=== PATIENT | female | born 1960 | race Caucasian/White ===

== ENCOUNTER → 2017-09-19 | Outpatient (CLI) | payer OTHER ==
[2017-09-21 15:11] LABS: HPV Genotype 16 Not Detected (NOTDET); HPV Genotype 18 Not Detected (NOTDET)
[2017-10-07 09:40] LABS: HPV High Risk Other Not Detected (NOTDET)
== END | disposition home or self-care (01) ==
LOC: LAB 15:08
PROVIDERS: Obstetrics & Gynecology
DX: Z01.419 Encounter for gynecological examination (general) (routine) without abnormal findings (principal)
CPT/HCPCS: 87624; G0123

== ENCOUNTER 2021-11-28 10:32 | Day surgery (SDC) | payer OTHER ==
[~2021-11-28] VITALS: Ht 157.5 cm; Wt 68.5 kg
[2021-11-28] MEDS ORDERED: CENTRUM SILVER1 EAC2 PO (11:24)
[2021-11-28] MEDS ORDERED: DULO30 PO (11:24)
[2021-11-28] MEDS ORDERED: CALCIUM CIT 311 EAC7 PO (11:24)
[2021-11-28] MEDS ORDERED: TRAZ100 PO (11:25)
[2021-11-28] MEDS ORDERED: Buspirone HCl15 MG PO (11:25)
[2021-11-28] MEDS ORDERED: ATOR20 (11:25)
== END 2021-11-28 13:16 | disposition home or self-care (01) ==
LOC: ORSCSDS 10:32
PROVIDERS: Internal Medicine Gastroenterology
PROC: 0DBM8ZX Excision of Descending Colon, Via Natural or Artificial Opening Endoscopic, Diagnostic (ICD-10-PCS; principal; 2021-11-28 11:45)
PROC: 0DBN8ZX Excision of Sigmoid Colon, Via Natural or Artificial Opening Endoscopic, Diagnostic (ICD-10-PCS; principal; 2021-11-28 11:45)
PROC: 0DBL8ZX Excision of Transverse Colon, Via Natural or Artificial Opening Endoscopic, Diagnostic (ICD-10-PCS; principal; 2021-11-28 11:45)
DX: Z12.11 Encounter for screening for malignant neoplasm of colon (principal); Z86.010 Personal history of colon polyps; Z83.71 Family history of colonic polyps; K63.5 Polyp of colon; K64.4 Residual hemorrhoidal skin tags; Z79.891 Long term (current) use of opiate analgesic; Z79.899 Other long term (current) drug therapy
CPT/HCPCS: 88305; J2704; J7120

== ENCOUNTER 2022-06-17 10:56 | Emergency (ER) | payer OTHER ==
[~2022-06-17 10:56] MED LIST: ATOR20; Buspirone HCl15 MG PO; CALCIUM CIT 311 EAC7 PO; CENTRUM SILVER1 EAC2 PO; DULO30 PO; TRAZ100 PO
[2022-06-17] MEDS ORDERED: Norco 5-325 Ta1 EACH PO (12:06)
[2022-06-17] MEDS ORDERED: HYDR1TAB94 PO (13:24)
== END 2022-06-17 12:35 | disposition home or self-care (01) ==
DX: M25.512 Pain in left shoulder (principal); W19.XXXA Unspecified fall, initial encounter; Z79.899 Other long term (current) drug therapy

== ENCOUNTER 2022-10-05 11:51 | Inpatient (IN) | payer OTHER ==
[~2022-10-05] VITALS: Ht 157.5 cm; Wt 61.6 kg
[~2022-10-05 11:51] MED LIST changes: -ATOR20; +ATOR20 PO; +HYDR1TAB94 PO; +Norco 5-325 Ta1 EACH PO
[2022-10-05 12:15] LABS: BASOPHILS ABSOLUTE AUTO 0.02 K/mm3 (0.00-0.23); BASOPHILS PERCENT AUTO 0 % (0-2); EOSINOPHILS PERCENT AUTO 0 % (0-6); Hematocrit 42.3 % (33.0-51.0); Hemoglobin 14.4 g/dL (11.5-16.0); IMMATURE GRAN ABSOLUTE AUTO 0.06 K/mm3 (0.00-0.10); IMMATURE GRAN PERCENT AUTO 0 % (0-1); LYMPHOCYTES ABSOLUTE AUTO 1.75 K/mm3 (0.84-5.20); LYMPHOCYTES PERCENT AUTO 12 % (21-46); MONOCYTES ABSOLUTE AUTO 1.24 K/mm3 (0.16-1.47); MONOCYTES PERCENT AUTO 9 % (4-13); Mean Corpuscular HGB 30.6 pg (26.0-34.0); Mean Corpuscular Volume 90 fL (80-100); NEUTROPHILS ABSOLUTE AUTO 11.39 K/mm3 (1.96-9.15); NEUTROPHILS PERCENT AUTO 79 % (41-73); Platelet Count 212 K/mm3 (150-400); RDW Coefficient Variation 13.3 % (11.7-14.2); RDW Standard Deviation 44.1 fL (35.1-46.3); White Blood Cell Count 14.46 K/mm3 (4.00-11.30)
[2022-10-05 12:33] LABS: Albumin, Blood 3.5 g/dL (3.4-5.0); Albumin/Globulin Ratio 0.9 (0.8-1.8); Bilirubin, Total 1.3 mg/dL (0.1-1.0); Bun/Creatinine Ratio 28.8 (12.0-20.0); Calcium, Blood 8.9 mg/dL (8.5-10.1); Creatinine, Blood 0.9 mg/dL (0.40-1.00); Globulin, Blood 3.9 g/dL (2.2-4.0); Potassium, Blood 2.8 mmol/L (3.5-5.5); Total Protein, Blood 7.4 g/dL (6.4-8.2)
[2022-10-05 17:24] LABS: Anti-Xa UFH, PHA Monitoring <0.10 IU/mL; International Normalized Ratio 1.55; Prothrombin Time Results 15.8 Sec (9.7-11.5)
[2022-10-06 03:09] LABS: BASOPHILS ABSOLUTE AUTO 0.03 K/mm3 (0.00-0.23); BASOPHILS PERCENT AUTO 0 % (0-2); EOSINOPHILS ABSOLUTE AUTO 0.06 K/mm3 (0.00-0.68); EOSINOPHILS PERCENT AUTO 1 % (0-6); Hemoglobin 12.8 g/dL (11.5-16.0); IMMATURE GRAN ABSOLUTE AUTO 0.02 K/mm3 (0.00-0.10); IMMATURE GRAN PERCENT AUTO 0 % (0-1); LYMPHOCYTES ABSOLUTE AUTO 3.42 K/mm3 (0.84-5.20); LYMPHOCYTES PERCENT AUTO 34 % (21-46); MONOCYTES PERCENT AUTO 10 % (4-13); Mean Corpuscular HGB 30.9 pg (26.0-34.0); Mean Corpuscular HGB Conc 33.7 g/dL (31.5-36.5); Mean Corpuscular Volume 92 fL (80-100); Mean Platelet Volume 10.3 fL (9.1-12.4); NEUTROPHILS ABSOLUTE AUTO 5.51 K/mm3 (1.96-9.15); NEUTROPHILS PERCENT AUTO 55 % (41-73); Platelet Count 192 K/mm3 (150-400); RDW Coefficient Variation 13.6 % (11.7-14.2); RDW Standard Deviation 46.1 fL (35.1-46.3); Red Blood Cell Count 4.14 M/mm3 (3.80-5.20); White Blood Cell Count 10.04 K/mm3 (4.00-11.30)
[2022-10-06 03:26] LABS: Anion Gap 4 mmol/L (6-16); Blood Urea Nitrogen 19 mg/dL (8-24); Bun/Creatinine Ratio 22.4 (12.0-20.0); CHOL/HDL RATIO 2.2; CO2, Blood 31 mmol/L (21-32); Calcium, Blood 7.6 mg/dL (8.5-10.1); Chloride, Blood 106 mmol/L (98-108); Cholesterol 113 mg/dL (50-200); Creatinine, Blood 0.85 mg/dL (0.40-1.00); Glomerular Filtration Rate 77 (60-); Glucose, Blood 103 mg/dL (70-99); HDL Cholesterol 51 mg/dL (>39); LDL/HDL RATIO 0.9; Low Density Lipoprotein Chol 47 mg/dL (0-110); Sodium, Blood 141 mmol/L (136-145); Triglycerides 75 mg/dL (30-160); Very Low Density Lipoprot Chol 15 mg/dL (6-32)
--- NOTE | 2022-10-06 05:17 | NUR ---
SHIFT SUMMARY PATIENT ARRIVED VIA STRETCHER TO PCU 01 AT 2000. SHE IS ALERT AND ORIENTED X4, APPROPRIATE WITH CALL LIGHT, AND STEADY ON HER FEET. VITAL SIGNS STABLE. PATIENT DENIES CHEST PAIN/PRESSURE, HEART SINUS RHYTHM ON TELE. LUNG SOUNDS CLEAR IN ALL SCHROEDER, NO COMPLAINTS OF SHORTNESS OF BREATH. HEPARIN DRIP CURRENTLY INFUSING AT 19.2 ML/HR OR 15 U/KG/HR. NO ACUTE ISSUES NOTED OVERNIGHT. WILL CONTINUE TO MONITOR. CALL LIGHT WITHIN REACH.
[2022-10-06 13:59] LABS: Bilirubin, Direct 0.3 mg/dL (0.0-0.3); Bilirubin, Indirect 0.5 mg/dL (0.1-0.7); Bilirubin, Total 0.8 mg/dL (0.1-1.0)
--- NOTE | 2022-10-06 17:56 | NUR ---
SHIFT SUMMARY; ASSUMED CARE AT 0700. A/A/OX4 DURING SHIFT. AMBULATES TO RESTROOM WITH SBA. REPOSITIONS SELF IN BED NEEDED. ECHO COMPLETE TODAY, EVALUATED BY CARDIOLOGY, POSSIBLE STRESS TEST SATURDAY. HEPARIN DC'D BY CARDIOLOGY. DENIES CP OR SOB, VSS, WILL CONTINUE TO MONITOR AND TREAT UNTIL CHANGE OF SHIFT.
[2022-10-07 05:03] LABS: BASOPHILS ABSOLUTE AUTO 0.03 K/mm3 (0.00-0.23); BASOPHILS PERCENT AUTO 0 % (0-2); EOSINOPHILS ABSOLUTE AUTO 0.14 K/mm3 (0.00-0.68); EOSINOPHILS PERCENT AUTO 2 % (0-6); Hemoglobin 12.3 g/dL (11.5-16.0); IMMATURE GRAN ABSOLUTE AUTO 0.02 K/mm3 (0.00-0.10); IMMATURE GRAN PERCENT AUTO 0 % (0-1); LYMPHOCYTES ABSOLUTE AUTO 2.31 K/mm3 (0.84-5.20); LYMPHOCYTES PERCENT AUTO 28 % (21-46); MONOCYTES ABSOLUTE AUTO 0.97 K/mm3 (0.16-1.47); MONOCYTES PERCENT AUTO 12 % (4-13); Mean Corpuscular HGB 30.6 pg (26.0-34.0); Mean Corpuscular HGB Conc 33.2 g/dL (31.5-36.5); Mean Corpuscular Volume 92 fL (80-100); Mean Platelet Volume 11.1 fL (9.1-12.4); NEUTROPHILS PERCENT AUTO 59 % (41-73); Platelet Count 206 K/mm3 (150-400); RDW Coefficient Variation 13.2 % (11.7-14.2); RDW Standard Deviation 44.9 fL (35.1-46.3); Red Blood Cell Count 4.02 M/mm3 (3.80-5.20); White Blood Cell Count 8.37 K/mm3 (4.00-11.30)
[2022-10-07 05:22] LABS: Bun/Creatinine Ratio 17.3 (12.0-20.0); Calcium, Blood 7.9 mg/dL (8.5-10.1); Creatinine, Blood 0.75 mg/dL (0.40-1.00); Potassium, Blood 2.9 mmol/L (3.5-5.5)
--- NOTE | 2022-10-07 07:12 | NUR ---
SHIFT SUMMARY PATIENT ALERT AND ORIENTED X4. MEDICATED PER EMAR FOR BACK PAIN AND GIVEN A HEATING PAD. VITAL SIGNS STABLE. LUNG SOUNDS CLEAR, NO COMPLAINTS OF SHORTNESS OF BREATH. PATIENT TOOK A WALK AROUND THE UNIT AND HAD NO COMPLAINTS OF CHEST PAIN, HEART RATE IN 120'S WHILE UP BUT CAME BACK DOWN TO THE 90'S WHEN PATIENT RECOVERED. NO ACUTE ISSUES NOTED OVERNIGHT. CALL LIGHT WITHIN REACH.
--- NOTE | 2022-10-07 07:30 | NUR ---
ASSUMED CARE: PT RESTING QUIETLY IN BED AT THIS TIME. NSR ON TELE. NO ACUTE NEEDS OR CONCERNS AT THIS TIME.
--- NOTE | 2022-10-07 08:11 | NUR ---
PT EXPRESSING CONCERN ABOUT NOT HAVING CYMBALTA IN A WEEK BECAUSE SHE WAS NAUSEATED AND VOMITING AT HOME. CALL TO DR KNAPP WHO STATED HE WILL COME TALK TO HER ABOUT IT.
--- NOTE | 2022-10-07 18:05 | NUR ---
SHIFT SUMMARY: PT WAS SEEN BY SALES AGENT [employer] TODAY WITH PLAN FOR CARDIAC CATH TOMORROW. DR FEELS PT LIKELY PASSED GALL STONE, LEADING TO BROKEN HEART SYNDROME. PT STILL STATES UNABLE TO TOLERATE LARGE AMOUNTS OF FOOD WITHOUT NAUSEA. MEDICATED X1 FOR NAUSEA. INDEPENDENT IN ROOM AND AMBULATORY. DENIES CHEST PAIN ALL SHIFT. NO ACUTE NEEDS OR CONCERNS AT THIS TIME.
[2022-10-08 03:51] LABS: Bun/Creatinine Ratio 9.6 (12.0-20.0); Calcium, Blood 7.9 mg/dL (8.5-10.1); Creatinine, Blood 0.83 mg/dL (0.40-1.00); Potassium, Blood 3.6 mmol/L (3.5-5.5)
[2022-10-08 04:54] LABS: BASOPHILS ABSOLUTE AUTO 0.02 K/mm3 (0.00-0.23); BASOPHILS PERCENT AUTO 0 % (0-2); EOSINOPHILS ABSOLUTE AUTO 0.17 K/mm3 (0.00-0.68); EOSINOPHILS PERCENT AUTO 2 % (0-6); Hematocrit 39.2 % (33.0-51.0); Hemoglobin 12.8 g/dL (11.5-16.0); IMMATURE GRAN ABSOLUTE AUTO 0.01 K/mm3 (0.00-0.10); IMMATURE GRAN PERCENT AUTO 0 % (0-1); LYMPHOCYTES ABSOLUTE AUTO 2.05 K/mm3 (0.84-5.20); LYMPHOCYTES PERCENT AUTO 25 % (21-46); MONOCYTES ABSOLUTE AUTO 0.86 K/mm3 (0.16-1.47); MONOCYTES PERCENT AUTO 11 % (4-13); Mean Corpuscular HGB 30.6 pg (26.0-34.0); Mean Corpuscular HGB Conc 32.7 g/dL (31.5-36.5); Mean Corpuscular Volume 94 fL (80-100); Mean Platelet Volume 11.4 fL (9.1-12.4); NEUTROPHILS ABSOLUTE AUTO 4.95 K/mm3 (1.96-9.15); NEUTROPHILS PERCENT AUTO 62 % (41-73); Platelet Count 201 K/mm3 (150-400); RDW Coefficient Variation 13.5 % (11.7-14.2); RDW Standard Deviation 46.5 fL (35.1-46.3); Red Blood Cell Count 4.18 M/mm3 (3.80-5.20); White Blood Cell Count 8.06 K/mm3 (4.00-11.30)
--- NOTE | 2022-10-08 06:07 | NUR ---
SHIFT SUMMARY PATIENT ALERT AND ORIENTED X4. SHE HAD NO COMPLAINTS OF PAIN OR SHORTNESS OF BREATH. VITAL SIGNS STABLE. HEART SINUS RHYTHM IN THE 90'S PER TELE. DENIES CHEST PAIN. PATIENT IS CURRENTLY NPO PENDING PROCEDURE. NO ACUTE ISSUES NOTED OVERNIGHT. WILL CONTINUE TO MONITOR. CALL LIGHT WITHIN REACH.
[2022-10-08] MEDS ORDERED: ASPI81CH PO (15:27)
[2022-10-08] MEDS ORDERED: Prinivil10 MG PO (15:35)
[2022-10-08] MEDS ORDERED: METO25ER PO (15:37)
--- NOTE | 2022-10-08 18:04 | NUR ---
DISCHARGE: PT TO/FROM RADIOPHONE OPERATOR THIS AM W/NO INTERVENTION. R RADIAL SITE RECOVERED WNL. VSS. PT DENIES CP, SOB, N/V. PT CLEARED FOR DISCHARGE. IV ACCESS DC'd. PT DRESSES SELF. PT AND FAMILY PROVIDED WITH DC PAPERWORK AND INSTRUCTIONS, ALL QUESTIONS HAVE BEEN ANSWERED. PT ESCORTED FROM UNIT VIA W/C W/OUT INCIDENT.
== END 2022-10-08 17:53 | disposition home or self-care (01) | DRG 281 ==
LOC: ER 11:51 → PCU 11:52
PROVIDERS: Family Medicine; Internal Medicine Interventional Cardiology; Student in an Organized Health Care Education/Training Program; ADMIT Internal Medicine
PROC: 4A023N7 Measurement of Cardiac Sampling and Pressure, Left Heart, Percutaneous Approach (ICD-10-PCS; principal; 2022-10-08)
PROC: B211YZZ Fluoroscopy of Multiple Coronary Arteries using Other Contrast (ICD-10-PCS; 2022-10-08)
DX: I21.4 Non-ST elevation (NSTEMI) myocardial infarction (principal); I50.22 Chronic systolic (congestive) heart failure; I51.81 Takotsubo syndrome; F41.8 Other specified anxiety disorders; F17.210 Nicotine dependence, cigarettes, uncomplicated; E87.6 Hypokalemia; R11.2 Nausea with vomiting, unspecified; D72.828 Other elevated white blood cell count; R10.13 Epigastric pain; I11.0 Hypertensive heart disease with heart failure; E78.5 Hyperlipidemia, unspecified; Z71.6 Tobacco abuse counseling; Z90.49 Acquired absence of other specified parts of digestive tract; Z92.3 Personal history of irradiation; Z98.51 Tubal ligation status; Z88.8 Allergy status to other drugs, medicaments and biological substances; Z79.899 Other long term (current) drug therapy
CPT/HCPCS: 36415; 74177; 76705; 76937; 80048; 80053; 80061; 82247; 82248; 83036; 83690; 83735; 84132; 84450; 84484; 85025; 85520; 85610; 85730; 93005; 93010; 93306; 93458; 96361; 96365-59; 96375; 99152; 99153; 99285-25; A9270; C1769; C1887; C1894; G0378; J1170; J1644; J2250; J2405; J3010; J3480; J7030; J7040; J7050; J7120; Q9967

== ENCOUNTER 2023-08-18 05:17 | Inpatient (IN) | payer OTHER ==
[~2023-08-18] VITALS: Ht 160 cm; Wt 56.5 kg
[~2023-08-18 05:17] MED LIST changes: +ASPI81CH PO; +METO25ER PO; +Prinivil10 MG PO
[2023-08-18 05:42] LABS: BASOPHILS ABSOLUTE AUTO 0.03 K/mm3 (0.00-0.23); BASOPHILS PERCENT AUTO 0 % (0-2); EOSINOPHILS PERCENT AUTO 0 % (0-6); Hematocrit 46.8 % (33.0-51.0); Hemoglobin 16.1 g/dL (11.5-16.0); IMMATURE GRAN ABSOLUTE AUTO 0.03 K/mm3 (0.00-0.10); IMMATURE GRAN PERCENT AUTO 0 % (0-1); LYMPHOCYTES ABSOLUTE AUTO 1.17 K/mm3 (0.84-5.20); LYMPHOCYTES PERCENT AUTO 11 % (21-46); MONOCYTES ABSOLUTE AUTO 1.11 K/mm3 (0.16-1.47); MONOCYTES PERCENT AUTO 11 % (4-13); Mean Corpuscular HGB 31.5 pg (26.0-34.0); Mean Corpuscular HGB Conc 34.4 g/dL (31.5-36.5); Mean Corpuscular Volume 92 fL (80-100); Mean Platelet Volume 9.1 fL (9.1-12.4); NEUTROPHILS ABSOLUTE AUTO 7.88 K/mm3 (1.96-9.15); NEUTROPHILS PERCENT AUTO 77 % (41-73); Platelet Count 224 K/mm3 (150-400); RDW Coefficient Variation 12.8 % (11.7-14.2); RDW Standard Deviation 43.3 fL (35.1-46.3); Red Blood Cell Count 5.11 M/mm3 (3.80-5.20); White Blood Cell Count 10.22 K/mm3 (4.00-11.30)
[2023-08-18 06:21] LABS: Albumin, Blood 3.8 g/dL (3.4-5.0); Bilirubin, Direct 0.2 mg/dL (0.0-0.3); Bilirubin, Indirect 0.5 mg/dL (0.1-0.7); Bilirubin, Total 0.7 mg/dL (0.1-1.0); Bun/Creatinine Ratio 22.7 (12.0-20.0); Calcium, Blood 9.6 mg/dL (8.5-10.1); Creatinine, Blood 0.84 mg/dL (0.40-1.00); Globulin, Blood 3.9 g/dL (2.2-4.0); Potassium, Blood 3.2 mmol/L (3.5-5.5); Total Protein, Blood 7.7 g/dL (6.4-8.2)
[2023-08-18 06:40] LABS: Influenza A, PCR NEGATIVE (NEGATIVE); Influenza B, PCR NEGATIVE (NEGATIVE); SARS-Cov-2 (COVID-19) PCR, MMC NEGATIVE (NEGATIVE)
[2023-08-18 07:15] LABS: Resp Syncytial Virus, PCR POSITIVE (NEGATIVE)
[2023-08-18 14:24] VITALS: BP 167/97
--- NOTE | 2023-08-18 15:31 | NUR ---
Received pt from ED at 1330 awake and alert x3. Denies pain. VSS. Resp even nonlabored on 3L NC. Lung sounds diminished. Iso prec for RSV. Oriented to room and call light. Pt independent with ADLs. Will continue to monitor this shift.
[2023-08-18 20:43] VITALS: BP 149/86
[2023-08-19 03:29] VITALS: BP 124/76
--- NOTE | 2023-08-19 05:29 | NUR ---
SHIFT SUMMARY NOC PT A/O X 4. PLEASANT AND COOPERATIVE WITH CARE. PT IN DROPLET ISOLATION FOR RSV. ON 3L/NC SPO2>92%. PT ORIGNALLY CAME INTO ED WITH C/O ABD AND CONTINUES TO HAVE UPSET STOMACH WITH MILD PAIN AND BEING MEDICATED PER EMAR. PT REQUESTED TO TAKE A SHOWER, BUT WHEN SUPPLIES TAKEN TO ROOM PT WAS ASLEEP. POTASSIUM 3.2 UPON ADMIT, REPLACEMENT ADMINISTERED AND AWAITING AM LABS FOR IMPROVEMENT. PT IS RESTING WITH BED IN LOWEST POSITION, AND CALL LIGHT WITHIN REACH.
[2023-08-19 07:37] VITALS: BP 142/86
--- NOTE | 2023-08-19 15:09 | NUR ---
SHIFT SUMMARY PT AWAKE DURING SHIFT REPORT, RESTING QUIETLY IN BED. PT ADMITTED FOR RSV. UP INDEPENDENTLY IN AND TO SHOWER THIS AM. DR CHANEL IN TO SEE PT AFTER BREAKFAST. PT LATER C/O ABD PAIN, JUST BELOW STERNUM. PT MEDICATED PER EMAR. PT REPORTED IT EFFECTIVE, BUT LATER C/O OF PAIN AGAIN. DR CHANEL NOTIFIED; NEW ORDERS PLACED. PT RESTING QUIETLY WATCHING TV. LATER C/O NAUSEA; MEDICATED PER EMAR. PT ON 3L VIA NC; RA AT BASELINE. REQUESTED HUMIDIFIED AIR FOR NASAL DRYNESS; RT ASSISTING. DENIED FURTHER NEEDS AT THIS TIME. CALL LT IN REACH.
[2023-08-19 16:11] VITALS: BP 148/93
[2023-08-19 18:44] VITALS: BP 162/93
[2023-08-20 02:33] VITALS: BP 107/73
[2023-08-20 06:08] LABS: Bun/Creatinine Ratio 18.3 (12.0-20.0); Calcium, Blood 8.9 mg/dL (8.5-10.1); Creatinine, Blood 0.93 mg/dL (0.40-1.00); Potassium, Blood 3.8 mmol/L (3.5-5.5)
--- NOTE | 2023-08-20 06:44 | NUR ---
SUMMARY: PT A/OX4, IS INDEPENDENT IN ROOM AND CALLS APPROPRIATELY TO SPECIFY NEEDS. SHE REMAINS ON 2L HUMIDIFIED O2 VIA NC W/SPO2>92% AND NO S/S RESP DISTRESS OBSERVED. PT HAS KPAD IN PLACE FOR BACK PAIN AND PRN TYLENOL AND ULTRAM WERE RECEIVED FOR RELIEF OF NAGGING ABDO PAIN (UNKNOWN ORIGIN). RHODA RECEIVED THIS AM FOR C/O NAUSEA AND PPI MED WAS COMMENCED. NO ACUTE CHANGES, VSS/AFEBRILE. WCTM AND REPORT TO DAY RN.
[2023-08-20 08:01] VITALS: BP 151/94
[2023-08-20] MEDS ORDERED: ALUM-MAG HYDROX30 M2 PO (11:24)
[2023-08-20] MEDS ORDERED: IPRAT-ALBUT 0.5-3 ML INH (11:25)
[2023-08-20] MEDS ORDERED: Nicoderm Cq1 EAC1 TOP (11:26)
[2023-08-20] MEDS ORDERED: PANT40 PO (11:27)
[2023-08-20] MEDS ORDERED: FLUT1DIS5 INH (11:27)
[2023-08-20] MEDS ORDERED: GUAI600T33 PO (11:28)
--- NOTE | 2023-08-20 15:34 | NUR ---
PT AWAKE DURING SHIFT REPORT. LOOKING AND FEELING BETTER. O2 DECREASED TO RA; PT'S BIOX DECREASED TO 89%-91%. DR CHANEL IN TO SEE PT AND DISCUSS PLAN OF CARE. HOME O2 EVAL DONE PRIOR TO D/C. PT ABLE TO D/C TO ON BASELINE RA. MEDS FAXED TO [facility], PER PT REQUEST. D/C INSTRUCTIONS REVIEWED WITH PT. NOTIFIED OF D/C AND HERE TO TRANSPORTATION MECHANIC PT. ALL BELONGINGS WENT WITH PT.
== END 2023-08-20 14:53 | disposition home or self-care (01) | DRG 189 ==
LOC: ER 05:17 → MEDS 11:21
PROVIDERS: Emergency Medicine; Family Medicine; ADMIT Internal Medicine
DX: J96.01 Acute respiratory failure with hypoxia (principal); J21.0 Acute bronchiolitis due to respiratory syncytial virus; I50.22 Chronic systolic (congestive) heart failure; E87.1 Hypo-osmolality and hyponatremia; K29.70 Gastritis, unspecified, without bleeding; E87.6 Hypokalemia; I11.0 Hypertensive heart disease with heart failure; F17.200 Nicotine dependence, unspecified, uncomplicated; E78.5 Hyperlipidemia, unspecified; F32.A Depression, unspecified; Z90.49 Acquired absence of other specified parts of digestive tract; Z88.8 Allergy status to other drugs, medicaments and biological substances; Z79.82 Long term (current) use of aspirin; Z11.52 Encounter for screening for COVID-19; Z71.6 Tobacco abuse counseling
CPT/HCPCS: 0241U; 36415; 71045; 76705; 80048; 80076; 83690; 84132; 84484; 85025; 93005; 93010; 94640; 94664; 94760; 94761; 96374; 96375; 96376; 99285-25; A9270; J0456; J0696; J1100; J1170; J1885; J2405; J2930; J7050; J7120